=== PATIENT | female | born 1965 | race Caucasian/White ===

== ENCOUNTER 2019-03-21 08:26 | Day surgery (SDC) | payer BC ==
[~2019-03-21] VITALS: Ht 160 cm; Wt 76.7 kg
[~2019-03-21 08:26] MED LIST: BREO ELLIPTA 11 EACH INH; DULERA 100 MCG/13 GM INH; ESCI10 PO; HYOS.125 SL; MONT10T PO; NASACORT10.8 ML; PROAIR DIGIHAL90 MCG; TRIBENZOR 40-51 EAC1 PO; Zofran Odt4 MG SL
[2019-03-21] MEDS ORDERED: ESOM20 (08:57)
--- NOTE | 2019-03-21 11:14 | NUR ---
03/21/19 1114 Aletha Keene 3ML NACL USED FOR POLYP REMOVAL
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
== END 2019-03-21 11:55 | disposition home or self-care (01) ==
LOC: ORSCSDS 08:26
PROVIDERS: Internal Medicine Gastroenterology
PROC: 0DBL8ZX Excision of Transverse Colon, Via Natural or Artificial Opening Endoscopic, Diagnostic (ICD-10-PCS; principal; 2019-03-21 09:45)
PROC: 0D758ZZ Dilation of Esophagus, Via Natural or Artificial Opening Endoscopic (ICD-10-PCS; principal; 2019-03-21 09:45)
PROC: 0DB48ZX Excision of Esophagogastric Junction, Via Natural or Artificial Opening Endoscopic, Diagnostic (ICD-10-PCS; principal; 2019-03-21 09:45)
PROC: 0DBH8ZX Excision of Cecum, Via Natural or Artificial Opening Endoscopic, Diagnostic (ICD-10-PCS; principal; 2019-03-21 09:45)
PROC: 0DBK8ZX Excision of Ascending Colon, Via Natural or Artificial Opening Endoscopic, Diagnostic (ICD-10-PCS; principal; 2019-03-21 09:45)
DX: Z12.11 Encounter for screening for malignant neoplasm of colon (principal); Z86.010 Personal history of colon polyps; D12.0 Benign neoplasm of cecum; D12.2 Benign neoplasm of ascending colon; D12.3 Benign neoplasm of transverse colon; R13.10 Dysphagia, unspecified; K21.9 Gastro-esophageal reflux disease without esophagitis; B37.81 Candidal esophagitis; K57.30 Diverticulosis of large intestine without perforation or abscess without bleeding; K64.8 Other hemorrhoids; I10 Essential (primary) hypertension; J45.909 Unspecified asthma, uncomplicated; Z79.899 Other long term (current) drug therapy
CPT/HCPCS: 88305; J2250; J2405; J2704; J7040; J7120

== ENCOUNTER 2022-03-17 08:49 | Day surgery (SDC) | payer OTHER ==
[~2022-03-17] VITALS: Ht 160 cm; Wt 83.0 kg
[~2022-03-17 08:49] MED LIST changes: +ALBU90OI INH; +BREO ELLIPTA 21 EAC1 INH; +ESOM20; +IBUP800 PO; +OMEP20ER PO; +PSEUDOEPHEDRINE30 M1 PO; +ZYRTEC10 M2 PO; +[UNRECOGNIZED DRUG - OTHER] PO
[2022-03-17] MEDS ORDERED: BREO ELLIPTA 21 EAC1 (09:07)
[2022-03-17] MEDS ORDERED: PANT20 (09:07)
[2022-03-17] MEDS ORDERED: AZELASTINE137 MCG/01 (09:08)
== END 2022-03-17 11:30 | disposition home or self-care (01) ==
LOC: ORSCSDS 08:49
PROVIDERS: Internal Medicine Gastroenterology
PROC: 0DBK8ZX Excision of Ascending Colon, Via Natural or Artificial Opening Endoscopic, Diagnostic (ICD-10-PCS; principal; 2022-03-17 10:00)
PROC: 0DBH8ZX Excision of Cecum, Via Natural or Artificial Opening Endoscopic, Diagnostic (ICD-10-PCS; principal; 2022-03-17 10:00)
PROC: 0DBL8ZX Excision of Transverse Colon, Via Natural or Artificial Opening Endoscopic, Diagnostic (ICD-10-PCS; principal; 2022-03-17 10:00)
DX: K21.9 Gastro-esophageal reflux disease without esophagitis (principal); Z12.11 Encounter for screening for malignant neoplasm of colon; Z86.010 Personal history of colon polyps; D12.0 Benign neoplasm of cecum; D12.2 Benign neoplasm of ascending colon; D12.3 Benign neoplasm of transverse colon; R13.14 Dysphagia, pharyngoesophageal phase; K64.4 Residual hemorrhoidal skin tags; K57.30 Diverticulosis of large intestine without perforation or abscess without bleeding; I10 Essential (primary) hypertension; J45.909 Unspecified asthma, uncomplicated; Z79.899 Other long term (current) drug therapy
CPT/HCPCS: 88305; J2250; J2704; J7120